=== PATIENT | female | born 1960 | race Caucasian/White ===

== ENCOUNTER 2017-01-23 16:29 | Emergency (ER) | payer OTHER | END 2017-01-23 18:55 | disposition home or self-care (01) | LOC: ER1 16:29 | DX: J20.9 Acute bronchitis, unspecified (principal); I10 Essential (primary) hypertension; Z88.2 Allergy status to sulfonamides; Z96.653 Presence of artificial knee joint, bilateral; Z79.899 Other long term (current) drug therapy; Z85.038 Personal history of other malignant neoplasm of large intestine | CPT/HCPCS: 71020; 96372; 99283; J1100 ==

== ENCOUNTER → 2017-02-05 | Outpatient (CLI) | payer OTHER ==
[2017-02-05 10:20] LABS: HEMOGLOBIN 13.8 gm/dl (12.3-15.3); RED BLOOD COUNT 4.82 M/UL (4.00-5.10); WHITE BLOOD COUNT 8.6 K/UL (4.5-11.0)
[2017-02-05 11:49] LABS: BUN/CREATININE RATIO 33 (0-10)
== END ==
LOC: OPSV2 09:00
PROVIDERS: Anesthesiology; Obstetrics & Gynecology
DX: Z01.810 Encounter for preprocedural cardiovascular examination (principal); Z01.812 Encounter for preprocedural laboratory examination; N93.9 Abnormal uterine and vaginal bleeding, unspecified; I10 Essential (primary) hypertension
CPT/HCPCS: 36415; 80048; 81001; 85025; 93005

== ENCOUNTER 2017-04-01 18:07 | Emergency (ER) | payer OTHER ==
[2017-04-01 21:43] LABS: HEMOGLOBIN 15.2 gm/dl (12.3-15.3); RED BLOOD COUNT 5.18 M/UL (4.00-5.10); WHITE BLOOD COUNT 8.5 K/UL (4.5-11.0)
== END 2017-04-02 00:05 | disposition home or self-care (01) ==
LOC: ER1 18:07
PROVIDERS: Family Medicine
DX: R10.12 Left upper quadrant pain (principal); N20.0 Calculus of kidney; C18.9 Malignant neoplasm of colon, unspecified; K21.9 Gastro-esophageal reflux disease without esophagitis; I10 Essential (primary) hypertension; Z88.2 Allergy status to sulfonamides
CPT/HCPCS: 36415; 80053; 81001; 82150; 83690; 85025; 99284; J7040; J7050; Q9962

== ENCOUNTER → 2017-04-15 | Outpatient (CLI) | payer OTHER | LOC: RAD 15:52 | DX: N20.0 Calculus of kidney (principal) | CPT/HCPCS: 74000 ==

== ENCOUNTER → 2021-05-03 | Outpatient (CLI) | payer OTHER ==
[~2021-05-03] MED LIST: AUGMENTIN 875-1 EACH PO; CLARITIN10 M2 PO; DECADRON6 MG PO; ENDOCET 10-3251 EACH PO; HUMIBID LA TAB600 MG PO; HYDROCHLOROTHIA25 MG PO; IBUPROFEN PO; IBUPROFEN600 MG PO; LEVOTHYROXINE50 MCG PO; LORCET HD 10-31 EACH PO; MOBIC15 MG PO; NORCO 5-325 TA1 EACH PO; NORVASC10 MG PO; PHENERGAN PO; POTASSIUM CHLO10 ME1 PO; PROAIR HFA8.5 GM INH; PROTONIX40 MG PO; VITAMIN D21250 MCG PO; Voltaren Gel 1% TOP
== END ==
LOC: RAD 15:47
DX: N20.0 Calculus of kidney (principal)
CPT/HCPCS: 74018

== ENCOUNTER 2021-08-08 14:00 | Emergency (ER) | payer OTHER ==
[2021-08-08 15:43] LABS: HEMOGLOBIN 14.8 gm/dl (12.3-15.3); RED BLOOD COUNT 4.9 M/UL (4.00-5.10); WHITE BLOOD COUNT 7.7 K/UL (4.5-11.0)
[2021-08-08] MEDS ORDERED: OMNICEF 300 MG300 MG PO (17:14)
[2021-08-08] MEDS ORDERED: ZOFRAN4 MG PO (17:14)
== END 2021-08-08 17:42 | disposition home or self-care (01) ==
LOC: ER1 14:00
PROVIDERS: Physician Assistant
DX: N39.0 Urinary tract infection, site not specified (principal); N20.0 Calculus of kidney; I10 Essential (primary) hypertension; Z88.2 Allergy status to sulfonamides; Z85.038 Personal history of other malignant neoplasm of large intestine
CPT/HCPCS: 80053; 81001; 83605; 85025; 85652; 86140; 87086; 96374; 99284; J2405; Q9967

== ENCOUNTER 2021-08-25 17:14 | Emergency (ER) | payer OTHER ==
[~2021-08-25 17:14] MED LIST changes: +OMNICEF 300 MG300 MG PO; +ZOFRAN4 MG PO
[2021-08-25 17:54] LABS: HEMOGLOBIN 13.2 gm/dl (12.3-15.3); RED BLOOD COUNT 4.38 M/UL (4.00-5.10); WHITE BLOOD COUNT 7.9 K/UL (4.5-11.0)
[2021-08-25] MEDS ORDERED: OMNICEF 300 MG300 MG PO (19:08)
== END 2021-08-25 19:50 | disposition home or self-care (01) ==
LOC: ER1 17:14
PROVIDERS: Emergency Medicine
DX: N20.2 Calculus of kidney with calculus of ureter (principal); I10 Essential (primary) hypertension
CPT/HCPCS: 80053; 81001; 85025; 87086; 99284